=== PATIENT | female | born 1975 | race Caucasian/White ===

== ENCOUNTER → 2016-05-30 17:01 | Outpatient (CLI) | payer BC | END | disposition home or self-care (01) | LOC: D.MAMMO 16:00 | DX: Z12.31 Encounter for screening mammogram for malignant neoplasm of breast (principal) ==

== ENCOUNTER → 2016-06-07 16:20 | Outpatient (CLI) | payer BC | END | disposition home or self-care (01) | LOC: D.MAMMO 08:00 | DX: R92.8 Other abnormal and inconclusive findings on diagnostic imaging of breast (principal) ==

== ENCOUNTER → 2017-04-19 16:22 | Outpatient (CLI) | payer BC ==
[2017-04-19 19:09] LABS: ALBUMIN 4.2 g/dL (3.4-5.0); BILIRUBIN - DIRECT 0.13 mg/dL (0.00-0.30); BILIRUBIN - INDIRECT 0.33 mg/dL (0.00-1.00); BILIRUBIN - TOTAL 0.46 mg/dL (0.2-1.3); PROTEIN - SERUM 7.4 g/dL (6.4-8.2)
== END | disposition home or self-care (01) ==
LOC: D.LABREF 16:22
PROVIDERS: Internal Medicine Gastroenterology
DX: R74.8 Abnormal levels of other serum enzymes (principal); R12 Heartburn; R11.0 Nausea; R19.7 Diarrhea, unspecified

== ENCOUNTER → 2017-08-17 19:40 | Outpatient (CLI) | payer BC | END | disposition home or self-care (01) | LOC: D.MAMMO 05-02 15:00 → D.US 05-02 15:30 → D.MAMMO 05-18 11:00 → D.US 05-18 13:00 → D.MAMMO 06-15 11:30 | DX: R92.8 Other abnormal and inconclusive findings on diagnostic imaging of breast (principal) ==

== ENCOUNTER → 2017-08-21 07:44 | Outpatient (CLI) | payer BC | END | disposition home or self-care (01) | LOC: D.RAD 07:44 → D.MRI 07:44 | DX: R93.8 Abnormal findings on diagnostic imaging of other specified body structures (principal); M25.512 Pain in left shoulder; W19.XXXA Unspecified fall, initial encounter; Y93.89 Activity, other specified; Y92.89 Other specified places as the place of occurrence of the external cause ==

== ENCOUNTER 2018-04-19 10:57 | Outpatient (CLI) | payer BC ==
[~2018-04-19] VITALS: Ht 157.5 cm; Wt 50.0 kg
--- NOTE | ~2018-04-19 | HEMODYNAMI ---
PATIENT:ANOOP RUBALCAVA MEDICAL RECORD: [id number] : 77 LOCATION:[facility] ADMISSION DATE: 04/19/18 Generatedon:04/19/201812:54 Patient name: ANOOP RUBALCAVA Patient #: [id number] SSN: : 1975 Date of study: 04/19/2018 Page: Of Hemodynamic Procedure Report Patient Data Patient Demographics Procedure consent was obtained First Name: ANOOP Gender: Female Last Name: GINI : 1975 Patient #: [id number] Age: 42 year(s) Race: Unknown Additional ID: [id number] Contact details Address: [address] [place] [address] trail State: [place] City: [place] Zip code: [address] Past Medical History Allergies Allergen Reaction Date Comments Reported Vicodin 04/19/2018 Admission Admission Data Admission Date: 04/19/2018 Admission Time: 10:57 Lab Results Lab Result Date: 04/19/2018 Lab Result Time: 0:00 Biochemistry Name Units Result Min Max BUN mg/dl 8 --(*---)-- 7 18 Creatinine mg/dl 0.6 --(*---)-- 0.6 1.3 CBC Name Units Result Min Max Hemoglobin g/dl 16.5 --(--*-)-- 13.5 17.5 Procedure Procedure Types Cath Procedure Diagnostic Procedure [facility] w/Coronaries Procedure Description Procedure Date Procedure Date: 04/19/2018 Procedure Start Time: 12:43 Procedure End Time: 12:53 Procedure Staff Name Function Khalif Jeffery MD Performing Physician Samantha Jorgensen RT Monitor Axel Hassan RT Scrub Rolanda Wahl RN Nurse Procedure Data Cath Procedure Fluoroscopy Diagnostic fluoroscopy Total fluoroscopy Time: 1.1 time: 1.1 min min Diagnostic fluoroscopy Total fluoroscopy dose: 142 dose: 142 mGy mGy Contrast Material Contrast Material Type Amount (ml) Isovue 300 40 Entry Location Entry Primary Successful Side Size Upsize Upsize Entry Closure Avelar ccessful Closure Location (Fr) 1 (Fr) 2 (Fr) Remarks Device Remarks Radial Right 6 Fr Mechanical artery Short Compression Estimated blood loss: 5 ml Diagnostic catheters Device Type Used For End Catheter Placement DIAGNOSTIC [place] 110cm 5 Procedure Fr catheter ([id number]) Procedure Complications No complications Procedure Medications Medication Administration Route Dosage 0.9% NaCl I.V. 100 ml/hr Oxygen etCO2 Nasal cannula 2 l/min Lidocaine 2% added to field 20 Heparin Flush Bag added to field 2 bags (1000units/500ml NS) Radial Cocktail added to field 1 syringe (Verapomil 2mg/Nitro 400mcg/Heparin 1500units) Versed I.V. 2 mg Fentanyl I.V. 100 mcg Versed I.V. 2 mg Versed I.V. 2 mg Hemodynamics Rest Heart Rate: 98 (bpm) Pressure Samples Time Site Value (mmHg) Purpose Heart Use Rate(bpm) 12:45 LV 142/18,21 Snapshot 98 12:46 AO 141/99(120) Pullback 100 12:46 LV 135/21,16 Pullback 100 Gradients Valve Time Site 1 Site 2 Mean SEP/DFP Peak To Heart Use (mmHg) (sec/min) Peak Rate (mmHg) (bpm) Aortic 12:46 LV AO 0 100 135/21,16 141/99(120) Calculations Valve P-P Mean Valve Index Valve Source Name Gradient Area Flow (cm2) Aortic 0 0 Snapshots Pre Cath Intra NCS Post Cath Vital Signs Time Heart Resp SPO2 etCO2 NIBP (mmHg) Rhythm Pain Sedation Rate (ipm) (%) (mmHg) Status Level (bpm) 12:30:22 92 21 99 41.7 158/113(133) NSR 0 (11) 10(A) , No pain 12:34:32 92 20 100 39.4 165/101(125) NSR 0 (11) 10(A) , No pain 12:38:48 85 12 98 38.7 144/97(122) NSR 0 (11) 10(A) , No pain 12:43:00 85 13 99 40.9 141/94(125) NSR 0 (11) 10(A) , No pain 12:47:12 91 10 99 38.7 134/87(106) NSR 0 (11) 10(A) , No pain 12:51:20 87 8 97 40.2 140/92(119) NSR 0 (11) 10(A) , No pain Medications Time Medication Route Dose Verified Delivered Reason Notes E ffectiveness by by 12:38:45 0.9% NaCl I.V. 100 Khalif Rolanda used for ml/hr Jose DClifford Wahl procedure RN 12:38:51 Oxygen etCO2 2 l/min Khalif Rolanda used for Nasal Jose D Vish procedure cannula MD AMEZCUA 12:38:57 Lidocaine 2% added 20ml Khalif Cuadra for local to vial [facility] anesthetic field MD ROCHA 12:39:09 Heparin Flush added 2 bags Khalif Khalif used for Bag to [facility] procedure (1000units/500ml field MD ROCHA NS) 12:39:19 Radial Cocktail added 1 Khalif Khalif used for ([facility] MD ROCHA 400mcg/Heparin 1500units) 12:41:44 Versed I.V. 2 mg Khalif Akhtaryla for [facility] Wahl sedation MD AMEZCUA 12:41:51 Fentanyl I.V. 100 mcg Khalif Orantes for [facility] Wahl sedation MD AMEZCUA 12:45:32 Versed I.V. 2 mg Khalif Rolanda for [facility] Wahl sedation MD AMEZCUA 12:48:10 Versed I.V. 2 mg Khalif Akhtaryla for [facility] Wahl sedation MD AMEZCUAquality analyst Log Time Note 12:12:51 Rolanda Wahl RN sent for patient. Start room use. 12:13:39 Signed procedure consent form obtained from patient. 12:14:11 Time tracking: Regular hours (M-F 7:00 - 5:00) 12:14:15 Plan of Care:Hemodynamics will remain stable., Cardiac rhythm will remain stable., Comfort level will be maintained., Respiratory function will remain adequate., Patient/ family verbilizes understanding of procedure., Procedure tolerated without complication., Recovers from procedure without complications.. 12:14:18 Diagnostic Cath status Elective 12:14:36 H&P Date Dictated: 04/18/2018 Within 30 days and on chart., H&P Addendum completed by physician on day of procedure. (MUST COMPLETE FOR ALL OUTPATIENTS). 12:24:47 Patient received from Pre/Post Procedure Room to CCL 1 Alert and oriented. Tansferred to table in Supine position. 12:24:48 Warm blankets applied, and marin hugger turned on for patient comfort. 12:24:49 Correct patient and procedure confirmed by team. 12:24:49 ECG and BP/O2 sat monitors applied to patient. 12:24:50 Pre-procedure instructions explained to patient. 12:24:51 Pre-op teaching completed and patient verbalized understanding. 12:24:52 Family in waiting room. 12:24:54 Patient NPO since Midnight. 12:29:18 Vital chart was started 12:36:01 Patient allergic to Vicodin 12:36:04 Is patient on blood thinner?No 12:36:16 Patient diabetic? No. 12:36:29 PT STATES NOT 12:36:42 Previous problem with sedation/anesthesia? No ? 12:36:44 Snore? No 12:36:47 Sleep apnea? No 12:37:39 Deviated septum? No 12:37:40 Opens mouth fully? Yes 12:37:41 Sticks out tongue? Yes 12:37:42 Airway obstruction? No ? 12:37:44 Dentures? No ? 12:37:45 Modified Juaquin's test Ulnar < 7 seconds 12:37:51 Patient pain scale 0/10 ?. 12:37:55 IV patent on arrival in left hand with 0.9% NaCl at [facility]. 12:38:23 Lab Result : BUN 8 mg/dl 12:38:23 Lab Result : Creatinine 0.6 mg/dl 12:38:23 Lab Result : Hemoglobin 16.5 g/dl 12:38:32 Lab results completed and on chart. 12:38:38 Right Radial & Right Groin area was prepped with chlora-prep and draped in sterile fashion 12:38:40 Alarms reviewed by R. N. 12:38:41 Sharps counted by scrub and verified by R.N. 12:38:45 0.9% NaCl 100 ml/hr I.V. was administered by Rolanda Wahl RN; used for procedure; 12:38:51 Oxygen 2 l/min etCO2 Nasal cannula was administered by Rolanda Wahl RN; used for procedure; 12:38:57 Lidocaine 2% 20ml vial added to field was administered by Khalif Jeffery MD; for local anesthetic; 12:39:09 Heparin Flush Bag (1000units/500ml NS) 2 bags added to field was administered by Khalif Jeffery MD; used for procedure; 12:39:19 Radial Cocktail (Verapomil 2mg/Nitro 400mcg/Heparin 1500units) 1 syringe added to field was administered by Khalif Jeffery MD; used for procedure; 12:39:53 --------ALL STOP TIME OUT------ 12:39:55 Final Timeout: patient, procedure, and site verified with staff and physician. All members of the team are in agreement. 12:40:00 Right Radial & Right Groin site verified by team. 12:40:03 Physical assessment completed. ASA score P 2 - A patient with mild systemic disease as per Khalif Jeffery MD. 12:40:06 Sedation plan: IV Moderate Sedation Medication:Versed, Fentanyl 12:40:13 Use device set Radial Dx or PCI 12:40:15 ACIST Syringe (44451) opened to sterile field. 12:40:16 Bag Decanter (2002S) opened to sterile field. 12:40:18 ACIST Manifold (33194) opened to sterile field. 12:40:18 ACIST Hand Control (03781) opened to sterile field. 12:40:21 Medline Cath Pack ([id number]) opened to sterile field. 12:40:22 DIAGNOSTIC WIRE .035 260cm J wire (790140) opened to sterile field. 12:40:23 Tegaderm 4 x 4 (1626W) opened to sterile field. 12:40:24 MBrace Wrist Support ([id number]) opened to sterile field. 12:40:25 SHEATH 6FR Slender (56-1060) opened to sterile field. 12:41:44 Versed 2 mg I.V. was administered by Rolanda Wahl RN; for sedation; 12:41:51 Fentanyl 100 mcg I.V. was administered by Rolanda Wahl RN; for sedation; 12:42:48 Zero performed for pressure channel P1 12:43:43 Procedure started. 12:43:43 Full Disclosure recording started 12:43:57 Local anesthetic to right radial artery with Lidocaine 2% by Khalif Jeffery MD.INITIAL ACCESS ONLY 12:44:28 A 6 Fr Short sheath was inserted into the Right Radial artery 12:44:48 A DIAGNOSTIC [place] 110cm 5 Fr catheter (857695) was advanced over the wire and used for Procedure. 12:45:31 LV gram done using CARMICHAEL 12:45:32 Versed 2 mg I.V. was administered by Rolanda Wahl RN; for sedation; 12:45:34 Injector settings: Ml/sec: 5, Volume: 15, 12:46:10 LV hemodynamics recorded. 12:46:14 EF : 55 % 12:47:17 LCA angiography performed. 12:47:55 RCA angiography performed. 12:47:57 Catheter removed. 12:48:10 Versed 2 mg I.V. was administered by Rolanda Wahl RN; for sedation; 12:48:16 Procedure ended.(Physican Out) 12:50:11 TR BAND Standard ([id number]) opened to sterile field. 12:50:23 Sheath removed intact; hemostasis achieved with Mechanical Compression to the Right Radial artery. 12:50:35 Fluoroscopy time 01.10 minutes. 12:50:38 Fluoroscopy dose: 142 mGy 12:50:38 Flurop Dose total: 142 12:51:00 Contrast amount:Isovue 300 40ml. 12:51:04 TR band inflated with 10cc of air. 12:51:10 Post-procedure physical assessment completed. ASA score P 2 - A patient with mild systemic disease as per Khalif Jeffery MD. 12:51:13 Post procedure rhythm: sinus rhythm 12:51:15 Estimated blood loss: 5 ml 12:51:17 Post procedure instruction explained to patient.Patient verbalizes understanding. 12:51:17 Patient needs reinforcement of post procedure teaching. 12:53:17 Procedure and supply charges have been captured, reviewed, submitted and are correct. 12:53:21 Procedure Complication : No complications 12:53:23 Vital chart was stopped 12:53:23 See physician's report for complete and final results. 12:53:25 Report given to Pre/Post Procedure Room. 12:53:27 Patient transfered to Pre/Post Procedure Room with Bed. 12:53:29 Procedure ended. 12:53:29 Full Disclosure recording stopped 12:53:31 End room use (Document Last) Device Usage Item Name Manufacture Quantity Catalog Hospital Part Current Minimal Lot# / Number Charge Number Stock Stock Serial# Code ACIST Acist 1 99028 [id number] [id number] [id number] 20 MUBI (12533) Imonomy [employer] Bag Microtek 1 590115 73564 082186 5 Decanter Medical Inc. (2002S) ACIST Acist 1 96181 136543 051455 367419 5 Manifold Medical (40265) Systems Inc ACIST Hand Acist 1 78629 753517 973169 744088 5 Control Medical (54886) Systems Inc Medline Medline 1 [id number] 009577 70072 552642 5 Cath Pack ([id number]) DIAGNOSTIC [facility] 1 757118 097984 478767 967816 30 WIRE .035 260cm J wire (154320) Tegaderm 4 3M 1 1626W 203042 096493 422178 5 x 4 (1626W) MBrace Advanced 1 140-0250-00 992412 07200 535176 5 Wrist Vascular Support Dynamics ([id number]) SHEATH 6FR Terumo 1 [id number] 647545 855568 523550 5 Slender (801060) DIAGNOSTIC Terumo 1 40-2733 082242 881134 079709 5 [place] 110cm 5 Fr catheter (759276) TR BAND Terumo 1 [id number] 688774 973258 373499 40 Standard ([id number]) Signature Audit [place] Stage Time Signature Unsigned Intra-Procedure 04/19/2018 Samantha Jorgensen 12:54:18 PM RT(R) Signatures Monitor : Samantha Jorgensen Signature : RT Date : Time : [place] [id number] [place] [address]
--- NOTE | ~2018-04-19 | OP ---
PATIENT NAME: ANOOP RUBALCAVA MEDICAL RECORD: [id number] :77 LOCATION:D.[facility] ADMISSION DATE: SURGEON: HIWOT MOORE MD DATE OF OPERATION: 04/19/2018 PROCEDURE: Left heart catheterization, selective coronary angiography, right radial approach. CATHETERS: [place] catheter, radial sheath. The procedure was well tolerated. The patient returned to the segura. Sheath was removed. TR band was placed. FINDINGS: Left ventriculography in 30-degree CARMICHAEL view: Normal wall motion and normal systolic function. CORONARY ANATOMY: LEFT MAIN: Left main is free of disease. LAD: A large vessel, free of disease. CIRCUMFLEX: Large vessel, free of disease. RIGHT CORONARY ARTERY: Right coronary artery is with somewhat codominant system and right coronary artery is, smooth-walled vessel, free of disease. IMPRESSION: Normal LV function, normal coronary anatomy. TRANSINT:[id number] Voice Confirmation ID: [id number] DOCUMENT ID: [id number] HIWOT MOORE MD at 1546 CC: [id number] DICTATION DATE: 04/19/18 1256 CAB DRIVER: 04/19/18 1453 DEP CLI 04/19/18 [facility] [address] [place] [address]
[2018-04-19] MEDS ORDERED: XANAX2 MG PO (11:28)
[2018-04-19] MEDS ORDERED: DESERYL50 M2 PO (11:30)
[2018-04-19] MEDS ORDERED: CELEXA40 MG PO (11:30)
[2018-04-19] MEDS ORDERED: XANAX0.25 MG PO (11:31)
[2018-04-19 11:38] VITALS: BP 154/101; Ht 157.5 cm; Wt 50.0 kg
[2018-04-19 12:11] LABS: HEMOGLOBIN 16.5 g/dL (12-16); LYMPHOCYTES 11.4 % (15-50); MCH 32.4 pg (26.0-34.0); MCHC 34.4 g/dL (31.0-37.0); MCV 94.1 fL (80.0-100.0); MEAN PLATELET VOLUME 9.6 fL (7.4-10.4); PLATELET COUNT 234 10x3/uL (130-400); RDW 12.7 % (11.5-14.5); WBC 8.7 10x3/uL (4.8-10.8)
[2018-04-19 12:15] LABS: CALC OSMOLALITY 276 mosm/kg (275-300); CALCIUM 9.1 mg/dL (8.5-10.1); CARBON DIOXIDE 27.5 mmol/L (21.0-32.0); CHLORIDE - SERUM 100 mmol/L (98-107); CREATININE - SERUM 0.6 mg/dL (0.6-1.3); GLUCOSE 91 mg/dL (74-106); POTASSIUM - SERUM 3.9 mmol/L (3.5-5.1); SODIUM 140 mmol/L (136-145); UREA NITROGEN 8 mg/dL (7-18); eGFR NON AFRICAN AMERICAN > 90 mL/min (90-120)
== END 2018-04-19 15:10 | disposition home or self-care (01) ==
LOC: D.CATH 10:57
PROVIDERS: Internal Medicine Interventional Cardiology
DX: R07.9 Chest pain, unspecified (principal); Z01.812 Encounter for preprocedural laboratory examination

== ENCOUNTER → 2018-12-19 12:09 | Outpatient (CLI) | payer BC ==
[2018-04-19 11:38] VITALS: BMI 20.1
[~2018-12-19 12:09] MED LIST: CELEXA40 MG PO; DESERYL50 M2 PO; XANAX0.25 MG PO; XANAX2 MG PO
[2018-12-19 13:24] LABS: CALC OSMOLALITY 265 mosm/kg (275-300); CALCIUM 8.8 mg/dL (8.5-10.1); CARBON DIOXIDE 25.6 mmol/L (21.0-32.0); CHLORIDE - SERUM 99 mmol/L (98-107); CREATININE - SERUM 0.5 mg/dL (0.6-1.3); GLUCOSE 84 mg/dL (74-106); POTASSIUM - SERUM 4.2 mmol/L (3.5-5.1); SODIUM 134 mmol/L (136-145); T4 THYROXINE 6.2 ug/dL (4.7-13.3); THYROID STIMULATING HORMONE 1.08 uIU/mL (0.36-3.74); UREA NITROGEN 9 mg/dL (7-18); eGFR NON AFRICAN AMERICAN > 90 mL/min (90-120)
== END | disposition home or self-care (01) ==
LOC: D.LABREF 12:09
PROVIDERS: ATTEND Internal Medicine Interventional Cardiology
DX: R00.2 Palpitations (principal)

== ENCOUNTER 2019-12-17 17:00 | Outpatient (CLI) | payer BC ==
[2018-04-19 11:38] VITALS: BMI 20.1
== END 2019-12-17 23:59 | disposition home or self-care (01) ==
LOC: D.MAMMO 17:00
PROVIDERS: ATTEND Internal Medicine Interventional Cardiology
DX: Z12.31 Encounter for screening mammogram for malignant neoplasm of breast (principal)